=== PATIENT | male | born 1960 | race Caucasian/White ===

== ENCOUNTER 2018-07-03 08:44 | Day surgery (SDC) | payer BC, OTHER ==
[~2018-07-03 08:44] MED LIST: LIDOCAINE HCL 1% MPF 30 SOL ONE; MIDAZOLAM 2 MG/2 ML SOL ONE; PROPOFOL 500 MG/50 ML EMU IV ONE
[2018-07-03] MEDS ORDERED: LIDOCAINE HCL 2% MPF 10 ML SOL ONE ×2 (09:28→09:51)
[2018-07-03] MEDS ORDERED: MORPHINE SULFATE 10 MG/ML SOL ONE (09:57)
[2018-07-03 11:03] VITALS: RESP 16
[2018-07-03 11:44] VITALS: BP 108/70; PULSE 58; TEMP 98.1; O2SAT 98
== END 2018-07-03 11:30 | disposition home or self-care (01) ==
LOC: SURG 08:44
PROVIDERS: ATTEND Orthopaedic Surgery
DX: G56.02 Carpal tunnel syndrome, left upper limb (principal)
CPT/HCPCS: J2250; J2270; A6402; J2001; J2704